=== PATIENT | female | born 1975 | race Hispanic/Latino ===

== ENCOUNTER 2021-11-18 04:01 | Emergency (ER) | payer SELFPAY ==
[~2021-11-18] VITALS: Ht 167.6 cm; Wt 80.3 kg
[2021-11-18 04:10] VITALS: BP 155/77
[2021-11-18 07:28] LABS: APPEARANCE,URINE Clear (CLEAR); BILIRUBIN,URINE Negative (NEGATIVE); COLOR,URINE Yellow (YELLOW); GLUCOSE, URINE (UA) >=1000 mg/dL (NEGATIVE); KETONES,URINE Negative (NEGATIVE); LEUKOCYTE ESTERASE ,URINE Negative (NEGATIVE); NITRATE,URINE Negative (NEGATIVE); OCCULT BLOOD,URINE Negative (NEGATIVE); PH,URINE 5.5 (5.0-8.0); PROTEIN,URINE POS 1+ mg/dL (NEGATIVE)
[2021-11-18 07:36] LABS: BACTERIA,URINE Few /HPF (None Seen); RBC,URINE 0-1 /HPF (0-1); SQUAMOUS EPITHELIAL CELL,UR 0-2 /HPF (0-2); WBC,URINE 0-1 /HPF (0-1); YEAST,URINE BUDDING Few /HPF (None Seen)
[2021-11-18] MEDS ORDERED: ACETAMINOPHEN 500 MG TABLET ONE (07:36)
[2021-11-18 07:50] LABS: BASOPHILS % (AUTO) 0.4 % (0.0-5.0); EOSINOPHILS % (AUTO) 0.2 % (0.0-8.0); HEMATOCRIT 29.1 % (36-48); LYMPHOCYTES % (AUTO) 20.3 % (21.0-51.0); MEAN CORPUSCULAR HEMOGLOBIN 19.5 pg (27.0-33.0); MEAN CORPUSCULAR HGB CONC 29.2 g/dL (32.0-36.0); MEAN CORPUSCULAR VOLUME 66.9 fL (79-99); MONOCYTES % (AUTO) 9.7 % (3.0-13.0); NEUTROPHILS % (AUTO) 68.8 % (40.0-77.0); PLATELET COUNT (AUTO) 271 K/uL (130-400); RED BLOOD CELL COUNT(AUTO) 4.35 MIL/uL (4.00-5.50); RED CELL DISTRIBUTION WIDTH 18.6 % (11.0-15.5); WHITE BLOOD COUNT (AUTO) 5.4 K/uL (4.8-10.8)
[2021-11-18] MEDS ORDERED: ACETAMINOPHEN 500 MG TABLET PO SCH (08:00)
[2021-11-18 08:09] LABS: ALBUMIN 2.9 g/dL (3.5-5.0); BILIRUBIN,TOTAL 0.3 mg/dL (0.2-1.0); CREATININE 0.7 mg/dL (0.5-1.5); POTASSIUM 3.8 mmol/L (3.5-5.1); TOTAL PROTEIN, SERUM 7.3 g/dL (6.0-8.3)
[2021-11-18] MEDS ORDERED: FLUCONAZOLE 100 MG TAB ONE (08:27)
[2021-11-18] MEDS ORDERED: FLUCONAZOLE 100 MG TAB PO SCH (08:30)
[2021-11-18] MEDS ORDERED: AMOX-429 PO (08:46)
[2021-11-18] MEDS ORDERED: ACET-66 PO (08:46)
== END 2021-11-18 09:09 | disposition home or self-care (01) ==
LOC: EDH 04:01
DX: R50.9 Fever, unspecified (principal); R05.9 Cough, unspecified; R10.9 Unspecified abdominal pain; Z20.822 Contact with and (suspected) exposure to COVID-19; E11.9 Type 2 diabetes mellitus without complications; E78.00 Pure hypercholesterolemia, unspecified; Z95.5 Presence of coronary angioplasty implant and graft
CPT/HCPCS: 36415; 80053; 81001; 81025; 85025; 87635; 99283; C9803

== ENCOUNTER 2024-09-09 17:43 | Emergency (ER) | payer OTHER ==
[~2024-09-09] VITALS: Ht 167.6 cm; Wt 81.6 kg
[~2024-09-09 17:43] MED LIST: ACET-66 PO; AMOX-429 PO
--- NOTE | 2024-09-09 18:04 | ERN ---
ED Note History of Present Illness Stated Complaint: DIZZINESS AND N/V Chief Complaint: Dizzy/Light Headed Time Seen by MD: 17:46 Dictation: PATIENT IS A 49-YEAR-OLD FEMALE STATES SHE WAS DRIVING APPROXIMATELY 1500 THIS AFTERNOON SHE SUDDENLY GOT VERY DIZZY WITH DRIVING WORSE WHEN SHE TURNS HER HEAD. SHE STATES THIS THIS HAPPENED IN THE PAST WHEN SHE HAS HAD PANIC ATTACKS AND ANXIETY. DENIES ANY HISTORY OF HEADACHE, NO CHEST PAIN NO BACK PAIN. SHE STATES SHE FEELS NAUSEATED.. BILATERAL HORIZONTAL NYSTAGMUS NOTED IN TRIAGE ON EXAM. MOVES ALL EXTREMITIES 5/5 BILATERALLY SPEECH IS CLEAR Allergies: Coded Allergies: No Known Drug Allergies (Unverified Allergy, Unknown, 11/18/21) Home Meds Active Scripts Acetaminophen (Acetaminophen) 500 Mg Tablet, 1000 MG PO QID, #50 TAB Prov:EBONY BUSBY MD 11/18/21 Amoxicillin/Potassium Clav (Augmentin 875-125 Tablet) 1 Each Tablet, 1 TAB PO BID for 7 Days, #14 TAB 0 Refills Prov:EBONY BUSBY MD 11/18/21 Past Medical History Past Medical History: Diabetes-Type II, High Cholesterol, Heart Disease Surgical History: Cholecystectomy, BTL Surgical History Other: HEART STENT Social History: Negative, Lives with family History: Not Applicable RN Note Reviewed/Agreed w/PFSH: Yes Review of System Dictation CONSTITUTIONAL: NEGATIVE EXCEPT FOR HPI ANXIETY HEAD/FACE: NEGATIVE EXCEPT FOR HPI EENT: NEGATIVE EXCEPT FOR HPI RESPIRATORY: NEGATIVE EXCEPT FOR HPI GASTROINTESTINAL/ABDOMINAL: NEGATIVE EXCEPT FOR HPI GENITOURINARY: NEGATIVE EXCEPT FOR HPI MUSCULOSKELETAL: NEGATIVE EXCEPT FOR HPI INTEGUMENTARY: NEGATIVE EXCEPT FOR HPI NEUROLOGICAL/PSYCH: NEGATIVE EXCEPT FOR HPI DIZZINESS WORSE WHEN SHE TURNS HER HEAD HEMATOLOGIC/LYMPHATIC: NEGATIVE EXCEPT FOR HPI ALL SYSTEMS NEGATIVE, EXCEPT NOTED ABOVE. 13 POINT REVIEW OF SYSTEMS ASSESSED AND ALL NEGATIVE EXCEPT FOR ABOVE. Initial Vital Sign VS Vital Signs Date Time Temp Pulse Resp B/P (MAP) Pulse Ox O2 Delivery O2 Flow Rate FiO2 09/09/24 17:44 97.5 72 18 162/74 99 Room Air 0 09/09/24 18:18 21 Physical Exam Dictation VITAL SIGNS REVIEWED PATIENT IN TEARS WITH THE EXAM PATIENT'S DAUGHTER TARIQ, AT BEDSIDE GENERAL APPEARANCE: ALERT, ORIENTED X 3, MODERATE ANXIETY/DISTRESS ACUTE DISTRESS, WELL DEVELOPED, NOURISHED. HEAD AND FACE: NON-TRAUMATIC. EYES: PERRL, PINK CONJUNCTIVAS, EYELID NO TRAUMA, ANTERIOR CHAMBER WITH ARCUS SENILIS. BILATERAL HORIZONTAL NYSTAGMUS GREATER ON THE RIGHT EARS: PINNAS INTACT AND NO SIGNS OF TRAUMA OR ERYTHEMA EAR CANALS CLEAR AND NO DISCHARGE TM NO ERYTHEMA NOSE: NO DISCHARGE, NO BLEEDING. OROPHARYNX: MOUTH NORMAL, TONGUE PINK, PHARYNX CLEAR,NO ERYTHEMA, TONSILS NO EXUDATES, NO ABSCESSES NOTED, MUCOUS MEMBRANE MOIST NECK: SUPPLE, NON-TENDER, NO THYROMEGALY, NO MASSES, NO JVD, NO BRUITS BREAST:DEFERRED CHEST:NO TENDERNESS, NO CREPITUS, NO PARADOXICAL MOVEMENT, NO RETRACTIONS LUNGS:CLEAR, WELL-VENTILATED, SYMMETRIC, NO RALES, NO WHEEZING, NO RHONCHI, NO STRIDOR, GOOD BREATH SOUNDS BILATERALLY HEART: REGULAR RATE, REGULAR RHYTHM, NO MURMUR, NO GALLOPS VASCULAR: NO PERIPHERAL EDEMA, ABDOMEN: SOFT, POSITIVE BOWEL SOUNDS, NONDISTENDED, NO GUARDING, NONTENDER, NO REBOUND, NO MASSES NO HEPATOMEGALY, NO SPLENOMEGALY, NO SALTER'S SIGN, NO HERNIAS. RECTAL: DEFERRED GENITAL: DEFERRED NEUROLOGICAL: NORMAL SPEECH, MOTOR FUNCTION INTACT, SENSORY FUNCTION INTACT MUSCULOSKELETAL: NECK NONTENDER, FULL RANGE OF MOTION, BACK NONTENDER, FULL RANGE OF MOTION, EXTREMITIES: NONTENDER, FULL RANGE OF MOTION SKIN: COLOR PINK, DRY, NO TURGOR, NO RASH, NO LACERATIONS, NO ABRASIONS, NO CONTUSIONS. LYMPHATIC: DEFERRED Results (Laboratory/Radiology) Laboratory/Radiology Laboratory Tests Test 09/09/24 18:01 White Blood Count 7.2 K/uL (4.8-10.8) Red Blood Count 5.78 MIL/uL (4.00-5.50) H Hemoglobin 14.8 g/dL (12.0-16.0) Hematocrit 45.7 % (36-48) Mean Corpuscular Volume 79.1 fL (79-99) Mean Corpuscular Hemoglobin 25.6 pg (27.0-33.0) L Mean Corpuscular Hemoglobin Concent 32.4 g/dL (32.0-36.0) Red Cell Distribution Width 16.7 % (11.0-15.5) H Platelet Count 400 K/uL (130-400) Mean Platelet Volume 9.5 fL (7.5-10.5) Immature Granulocyte % (Auto) 0.3 % (0-1) Neutrophils (%) (Auto) 66.1 % (40.0-77.0) Lymphocytes (%) (Auto) 24.7 % (21.0-51.0) Monocytes (%) (Auto) 6.4 % (3.0-13.0) Eosinophils (%) (Auto) 1.8 % (0.0-8.0) Basophils (%) (Auto) 0.7 % (0.0-5.0) Neutrophils # (Auto) 4.7 K/uL (1.8-7.7) Lymphocytes # (Auto) 1.8 K/uL (1.0-4.8) Monocytes # (Auto) 0.5 K/uL (0.1-1.0) Eosinophils # (Auto) 0.13 K/uL (0.00-0.70) Basophils # (Auto) 0.05 K/uL (0.00-0.20) Absolute Immature Granulocyte (auto 0.02 K/uL (0-1) Nucleated Red Blood Cells 0.0 % (0.0-0.19) Sodium Level 140 mmol/L (136-145) Potassium Level 4.3 mmol/L (3.5-5.1) Chloride Level 102 mmol/L (101-111) Carbon Dioxide Level 30 mmol/L (21-32) Blood Urea Nitrogen 13 mg/dL (7-18) Creatinine 0.8 mg/dL (0.5-1.0) Glomerular Filtration Rate Calc 90 mL/min (>90) Random Glucose 264 mg/dL (70-105) H Total Calcium 11.6 mg/dL (8.5-10.1) H Troponin I High Sensitivity 5 ng/L (4-50) Labs Reviewed?: Yes EKG Comment: EKG SINUS RHYTHM/HEART RATE 65/NOT SAFE SICK IT NONSPECIFIC CHANGES IN ANTERIOR LEADS. ED Course ED Course Orders Procedure Category Date Status Time Cbc With Differential LAB 09/09/24 Complete 17:57 Troponin I High LAB 09/09/24 Complete Sensitivity 17:57 12 Lead Ekg Tracing- EKG 09/09/24 Complete Technical 17:57 0.9%Nacl 1000ml (Ns PHA 09/09/24 Complete 1000ml) 18:00 Ondansetron 4mg Inj PHA 09/09/24 Complete (Zofran 4mg Inj) 18:00 Basic Metabolic Panel LAB 09/09/24 Complete 17:57 Meclizine Hcl 25 Mg PHA 09/09/24 Complete (Antivert 25 Mg) 18:00 Methylprednisolone PHA 09/09/24 Complete Succ 125mg (Solu-Medr 18:00 Current Medications Medications (Trade) Dose Ordered Sig/Jackie Route PRN Reason Start Time Stop Time Status Last Admin Dose Admin Meclizine HCl (ANTIvert 25 mg) 50 mg ONCE ONCE PO 09/09/24 18:00 09/09/24 18:01 DC 09/09/24 18:10 Methylprednisolone Sodium Succinate (Solu-medROL 125MG) 125 mg ONCE ONCE IVP 09/09/24 18:00 09/09/24 18:01 DC 09/09/24 18:10 Ondansetron HCl (zoFRAN 4MG INJ) 4 mg ONCE ONCE IVP 09/09/24 18:00 09/09/24 18:01 DC 09/09/24 18:10 Sodium Chloride 1,000 ml @ 0 mls/hr ONCE ONCE IV 09/09/24 18:00 09/09/24 18:01 DC 09/09/24 18:10 Vital Signs Date Time Temp Pulse Resp B/P (MAP) Pulse Ox O2 Delivery O2 Flow Rate FiO2 09/09/24 19:01 98.1 65 18 150/73 98 Room Air* 0 21 09/09/24 18:18 98.8 68 20 156/69 98 Room Air* 0 21 09/09/24 17:44 97.5 72 18 162/74 99 Room Air 0 1910, patient states she feels markedly better after fluids meclizine and Solu- Medrol. Eyes are open speech is clear NIH remains 0. She states she is ready to go home. HEART Score Response (Comments) Value EKG: Repolarization changes 1 Age: 45-65yrs (+1) 1 Risk Factors: 1-2 risk factors (+1) 1 Initial Troponin: Normal limit (0) 0 Total 3 Medical Decision Making MDM MDM: Differential diagnosis: Vertigo/labyrinthitis/electrolyte imbalance/dehydr ation/ACS/AMI/panic attack Rationale: Tests considered and ordered secondary to shared decision making include: Labs/EKG Previous outside records reviewed: Old ER visits. Reviewed Risk of complication and/or morbidity or mortality of patient management: None Medications-Per medication reconciliation see nurse's notes Need for hospitalization: Patient does not meet criteria for hospitalization. No Need for emergency major/minor surgery: No There are no social concerns with this patient. Prescription drug management meclizine Prescriptions will include symptomatic care Patient's prior external medical records from other ER visits were reviewed by me as indicated. Prior testing and results from previous visits were reviewed. Prior tests were taken into account with medical decision making and resource utilization, independent historian/historians were used to obtain complete [facility] history. I independently interpreted the test that were performed, results were reviewed by me and considered findings on radiology if ordered. Medical management and examination interpretation discussions were had by me with other qualified healthcare professionals as indicated for the patient's care. DX & DISP Disposition: Discharge Departure Impression: Primary Impression: Benign positional vertigo Additional Impressions: Uncontrolled diabetes mellitus, Panic attack Condition: Stable Scripts Meclizine HCl (Meclizine HCl) 25 Mg Tablet 25 MG PO TID for vertigo, #30 TAB 0 Refills Prov: PANTERA DOWNING NP 09/09/24 Additional Instructions: Follow-up with primary care provider in 1 to 2 days. Take medications as directed here in the emergency room. Okay to continue home medications unless otherwise discussed during your visit in the emergency room today. Return to your nearest emergency room if symptoms worsen or if there is no improvement. Call 911 if you need immediate assistance. Take Tylenol or Motrin [id number] as needed and if no contraindications are present. Increase oral hydration. A wound culture or urine culture was ordered here in the emergency room department please follow-up with primary care provider and advise them to get repeat ports from our facility. If you had any Elier wrap/splints that were applied here, please do not remove them until you see your primary care or specialty. Continue all your medications at home. Take meclizine every 8 hours for the next two days. See your primary care doctor on Wednesday for follow Referrals: NONE (PCP) Time of Disposition: 19:13 I have reviewed the case, and I agree with, Diagnosis and Plan PANTERA DOWNING NP Sep 09, 2024 18:04
[2024-09-09 18:08] LABS: BASOPHILS # (AUTO) 0.05 K/uL (0.00-0.20); BASOPHILS % (AUTO) 0.7 % (0.0-5.0); EOSINOPHILS # (AUTO) 0.13 K/uL (0.00-0.70); EOSINOPHILS % (AUTO) 1.8 % (0.0-8.0); HEMATOCRIT 45.7 % (36-48); IMMATURE GRANULOCYTE ABSOLUTE 0.02 K/uL (0-1); LYMPHOCYTES # (AUTO) 1.8 K/uL (1.0-4.8); LYMPHOCYTES % (AUTO) 24.7 % (21.0-51.0); MEAN CORPUSCULAR HEMOGLOBIN 25.6 pg (27.0-33.0); MEAN CORPUSCULAR HGB CONC 32.4 g/dL (32.0-36.0); MEAN CORPUSCULAR VOLUME 79.1 fL (79-99); MONOCYTES # (AUTO) 0.5 K/uL (0.1-1.0); MONOCYTES % (AUTO) 6.4 % (3.0-13.0); NEUTROPHILS # (AUTO) 4.7 K/uL (1.8-7.7); NEUTROPHILS % (AUTO) 66.1 % (40.0-77.0); PLATELET COUNT (AUTO) 400 K/uL (130-400); RED BLOOD CELL COUNT(AUTO) 5.78 MIL/uL (4.00-5.50); RED CELL DISTRIBUTION WIDTH 16.7 % (11.0-15.5); WHITE BLOOD COUNT (AUTO) 7.2 K/uL (4.8-10.8)
[2024-09-09] MEDS: mecliZINE HCL 25 MG TABLET PO ONE (18:10)
[2024-09-09] MEDS: 0.9%NACL 1000ML 1,000 ML IV ONE (18:10)
[2024-09-09] MEDS: ondanSETRON 4MG INJ IVP ONE (18:10)
[2024-09-09] MEDS: Solu-medROL 125MG VIAL IVP ONE (18:10)
--- NOTE | 2024-09-09 18:11 | EKG ---
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
[2024-09-09 18:23] LABS: CREATININE 0.8 mg/dL (0.5-1.0); POTASSIUM 4.3 mmol/L (3.5-5.1)
[2024-09-09 19:01] VITALS: BP 150/73; PULSE 65; RESP 18; TEMP 98.1; O2SAT 98
[2024-09-09] MEDS ORDERED: MECL-302 PO (19:14)
== END 2024-09-09 19:32 | disposition home or self-care (01) ==
LOC: EDH 17:43
DX: H81.10 Benign paroxysmal vertigo, unspecified ear (principal); E11.65 Type 2 diabetes mellitus with hyperglycemia; E78.00 Pure hypercholesterolemia, unspecified; F41.0 Panic disorder [episodic paroxysmal anxiety]; Z90.49 Acquired absence of other specified parts of digestive tract; Z95.5 Presence of coronary angioplasty implant and graft; Z98.51 Tubal ligation status
CPT/HCPCS: 99284; 96374; 96361; 96375; 84484; 80048; 85025; 36415; 93005; J7030; J2919; J2405